=== PATIENT | female | born 1960 | race Two or more races ===

== ENCOUNTER 2021-09-21 17:06 | Emergency (ER) | payer MEDICAID ==
[~2021-09-21] VITALS: Ht 167.6 cm; Wt 94.0 kg
[2021-09-21 17:22] VITALS: BP 137/78
== END 2021-09-21 18:55 | disposition left against medical advice (07) ==
LOC: ER 17:45 → CANBEDREQ 20:28
DX: L03.116 Cellulitis of left lower limb (principal); Z13.9 Encounter for screening, unspecified; Z53.29 Procedure and treatment not carried out because of patient's decision for other reasons
CPT/HCPCS: 71045; 73590; 99284